=== PATIENT | male | born 1995 | race Two or more races ===

== ENCOUNTER 2021-11-27 10:43 | Emergency (ER) | payer SELFPAY ==
[~2021-11-27] VITALS: Ht 162.6 cm; Wt 61.2 kg
[2021-11-27 12:58] VITALS: BP 154/98
[2021-11-27] MEDS ORDERED: LIDOCAINE 1% HCL (LOCAL ANESTH.) INJ 20ML MDV IJ ONE (13:45)
[2021-11-27] MEDS ORDERED: cefTRIAXone SOD 1,000 MG VL IM ONE (13:45)
[2021-11-27] MEDS ORDERED: LIDOCAINE VISCOUS 2% 15ML UD PO ONE (14:00)
[2021-11-27] MEDS ORDERED: LIDO2SOL23 PO (14:04)
[2021-11-27] MEDS ORDERED: CEPH500T PO (14:04)
== END 2021-11-27 14:11 | disposition home or self-care (01) ==
LOC: ER 10:43
DX: K12.1 Other forms of stomatitis (principal); J04.0 Acute laryngitis
CPT/HCPCS: 96372; 99283; J0696

== ENCOUNTER 2022-12-30 14:54 | Emergency (ER) | payer MEDICAID ==
[~2022-12-30] VITALS: Ht 162.6 cm; Wt 65.0 kg
[~2022-12-30 14:54] MED LIST: CEPH500T PO; LIDO2SOL23 PO
[2022-12-30 15:15] VITALS: BP 139/99
[2022-12-30] MEDS ORDERED: CYCL-837 PO (18:28)
[2022-12-30] MEDS ORDERED: IBUP800T26 PO (18:28)
== END 2022-12-30 22:43 | disposition home or self-care (01) ==
LOC: ER 14:54
DX: S01.511A Laceration without foreign body of lip, initial encounter (principal); S16.1XXA Strain of muscle, fascia and tendon at neck level, initial encounter; S20.219A Contusion of unspecified front wall of thorax, initial encounter; F17.210 Nicotine dependence, cigarettes, uncomplicated; Z79.899 Other long term (current) drug therapy; Y04.2XXA Assault by strike against or bumped into by another person, initial encounter; Y93.89 Activity, other specified; Y92.89 Other specified places as the place of occurrence of the external cause; Y99.8 Other external cause status
CPT/HCPCS: 70450; 72125; 74176

== ENCOUNTER 2024-07-21 14:25 | Emergency (ER) | payer MEDICAID ==
[~2024-07-21] VITALS: Ht 162.6 cm; Wt 70.7 kg
[~2024-07-21 14:25] MED LIST changes: +CYCL-837 PO; +IBUP-1455 PO; -LIDO2SOL23 PO; +LIDO2SOL26 PO
[2024-07-21 15:09] LABS: Basophils # (auto) 0 10 ^3/uL (0-0.2); Basophils % (auto) 0.4 % (0.0-2.0); Eosinophils # (auto) 0 10 ^3/uL (0-0.8); Eosinophils % (auto) 0.2 % (0.0-7.0); Hematocrit 45.5 % (41.0-53.0); Hemoglobin 16.4 g/dL (13.5-17.5); Lymphocytes # (auto) 1.9 10 ^3/uL (0.4-5.4); Lymphocytes % (auto) 21.1 % (10.0-50.0); Mean Corpuscular Hemoglobin 32.6 pg (28.0-32.0); Mean Corpuscular Hgb Conc. 35.9 g/dL (32.0-36.0); Mean Corpuscular Volume 90.8 fL (80.0-100.0); Monocytes # (auto) 0.6 10 ^3/uL (0-1.3); Monocytes % (auto) 6.1 % (0.0-12.0); Neutrophils # (auto) 6.5 10 ^3/uL (1.6-8.6); Neutrophils % (auto) 72.2 % (37.0-80.0); Nucleated Red Blood Cells % 0.1 %; Platelet Count (auto) 314 10^3/uL (140-450); Red Blood Cells 5.02 10^6/uL (4.5-5.90); Red Cell Distribution Width 12.8 % (11.8-14.3)
[2024-07-21 15:24] LABS: Alanine Aminotransferase 94 U/L (7-40); Alkaline Phosphatase 107 U/L (46-116); Anion Gap 13 (5-15); Aspartate Aminotransferase 69 U/L (13-40); BUN/Creatinine Ratio 9.3 (10.0-20.0); Blood Urea Nitrogen 8 mg/dL (9-23); Calcium 9.5 mg/dL (8.7-10.4); Carbon Dioxide 20 mmol/L (20-30); Chloride 102 mmol/L (98-107); Glucose 160 mg/dL (74-106); Magnesium 1.8 mg/dL (1.6-2.6); Potassium 3.4 mmol/L (3.5-5.1); Sodium 135 mmol/L (136-145)
[2024-07-21 15:25] LABS: Bilirubin, Total 1.4 mg/dL (0.2-1.0); Total Protein 7.8 g/dL (5.7-8.2)
[2024-07-21 19:23] VITALS: BP 143/89; PULSE 84; RESP 20; TEMP 98.6; O2SAT 97
[2024-07-21] MEDS: diphenhdrAMINE HCL 50 MG/1 ML VL IV ONE (20:09)
[2024-07-21] MEDS: methylPREDNISolone SOD SUCC 125 MG/2 ML VL IV ONE (20:09)
== END 2024-07-21 20:29 | disposition home or self-care (01) ==
LOC: ER 14:25
DX: R07.9 Chest pain, unspecified (principal); F17.210 Nicotine dependence, cigarettes, uncomplicated; Z79.899 Other long term (current) drug therapy
CPT/HCPCS: 36415; 71046; 80053; 83735; 84484; 85025; 93005; 96374; 96375; 99285; J1200; J2919